=== PATIENT | female | born 1990 ===

== ENCOUNTER 2019-06-24 17:15 | Emergency (ER) | payer OTHER ==
[2019-06-24] MEDS ORDERED: Azithromycin TAB* 250 MG PO ONE (19:06)
[2019-06-24 19:11] VITALS: BP 99/74
--- NOTE | 2019-06-24 19:25 | UC ---
Respiratory Complaint HPI - HPI Summary HPI Summary: Patient is 29 year old female, who present today to the urgent care with respiratory for past 1 week. Pt states she feels achy, low grade fever, cough for over 1 week. Pt states she just feels awful and has a 6 week old child at home. She denies any sick contact. Body aches were are really annoying. And she feels very tired. Cough productive of phlegm Denies any chest pain or shortness of breath . Denies any abdominal pain , nausea or vomiting , diarrhea or constipation. - History of Current Complaint Chief Complaint: UCGeneralIllness Stated Complaint: COUGH/BODY ACHES Time Seen by Provider: 06/24/19 18:47 Hx Obtained From: Patient Hx Last Menstrual Period: Has not had period since of baby 05/08/19 Pain Intensity: 6 - Allergies/Home Medications Allergies/Adverse Reactions: Allergies Allergy/AdvReac Type Severity Reaction Status Date / Time amoxicillin Allergy Hives Verified 06/24/19 18:38 PMH/Surg Hx/FS Hx/Imm Hx - Additional Past Medical History Additional PMH: Past Medical History : None Past Surgical History: Cholecystectomy, T and A Family History : non contributory Social History : No alcohol, light daily smoker, no drug use. Previously Healthy: Yes - Surgical History Surgical History: Yes Surgery Procedure, Year, and Place: gallbladder removed, t&a - Family History Known Family History: Positive: Non-Contributory - Social History Alcohol Use: None Substance Use Type: None Smoking Status (MU): Light Every Day Tobacco Smoker Review of Systems All Other Systems Reviewed And Are Negative: Yes Constitutional: Positive: Fever, Fatigue, Other - Body aches Skin: Positive: Negative Eyes: Positive: Negative ENT: Positive: Nasal Discharge. Negative: Sore Throat Respiratory: Positive: Negative, Cough Cardiovascular: Positive: Negative Gastrointestinal: Positive: Negative Genitourinary: Positive: Negative Motor: Positive: Negative Neurovascular: Positive: Negative Musculoskeletal: Positive: Negative Neurological: Positive: Negative Psychological: Positive: Negative Is Patient Immunocompromised?: No Physical Exam - Summary Physical Exam Summary: Physical Exam: Const: Appears well. No signs of apparent distress present. Alert and oriented x 3. Musculo: Walks with a normal gait. Head/Face: Atraumatic, normocephalic on inspection. Eyes: EOMI and PERRLA in both eyes. Conjunctivae clear. No discharge noted ENT: Hearing normal, TM normal appearing bilaterally, No tenderness to palpation on maxillary and frontal sinus. Mild pharyngeal erythema without exudates . Uvula is midline. No cervical or submandibular lymphadenopathy noted. Respiratory: Respirations are unlabored. Lungs clear to auscultation bilaterally, no wheezing , rhonchi or rales noted . CVS: Regular rate and Rhythm, S1S2 normal , no murmurs identified. Extremities: Peripheral circulation is grossly normal. Pulses 2+ Abdomen : Soft non tender , nondistended , Bowel sounds present . No guarding , rebound tenderness or rigidity noted. Skin: No lesions or rash located on the upper extremities or on the lower extremities. Neuro: Cranial nerves II to XII intact, motor and sensory intact. DTR Intact bilaterally. Mood is normal. Affect is normal. Triage Information Reviewed: Yes Vital Signs: Initial Vital Signs Temp 99.4 F 06/24/19 18:32 Pulse 103 06/24/19 18:32 Resp 16 06/24/19 18:32 BP 99/84 06/24/19 18:32 Pulse Ox 100 06/24/19 18:32 Vital Signs Reviewed: Yes Respiratory Course/Dx - Course Course Of Treatment: During the visit today, we discussed the findings - symptoms getting worse with time and she is having cough with productive sputum and she has a 6-week- old child at home who she is not breast-feeding . Possibly atypical pneumonia and I will treat it with azithromycin ,she was given 1 dose here, I will prescribe the rest of the medication to the pharmacy . Patient expressed understanding . - Differential Dx/Diagnosis Provider Diagnosis: Atypical pneumonia Discharge ED - Sign-Out/Discharge Documenting (check all that apply): Patient Departure All imaging exams completed and their final reports reviewed: No Studies - Discharge Plan Condition: Stable Disposition: HOME Prescriptions: Azithromycin TAB* [Zithromax TAB (Z-CARMEL) 250 mg #6 tabs] 250 mg PO DAILY 4 Days #4 tab Benzonatate CAP* [Tessalon 100 MG CAP*] 100 mg PO TID PRN 10 Days #30 cap PRN Reason: Cough Patient Education Materials: Pneumonia (ED) Referrals: Tamiko Lema [Primary Care Provider] - 1 Week Additional Instructions: Your given the first dose here. Please start taking the medication as prescribed to the pharmacy to complete the full course. Follow up with your primary care doctor in 1 week if needed Return to Urgent care / ER if symptoms get worse. - Billing Disposition and Condition Condition: STABLE Disposition: Home
== END 2019-06-24 19:19 | disposition home or self-care (01) ==
LOC: UCCORT 17:15
DX: J18.9 Pneumonia, unspecified organism (principal); F17.290 Nicotine dependence, other tobacco product, uncomplicated; Z88.0 Allergy status to penicillin
CPT/HCPCS: 99212; A9270-GY; G0463